=== PATIENT | female | born 1965 | race Caucasian/White ===

== ENCOUNTER → 2024-08-29 10:55 | Outpatient (CLI) | payer BC, SELFPAY ==
[2024-08-29 12:15] LABS: COVID-19 CEPHEID 4-PLEX PCR Negative (Negative); Influenza A - CEPHEID Flu A POSITIVE (NEGATIVE); Influenza B - CEPHEID Flu B NEGATIVE (NEGATIVE); Respiratory Syncytial Virus Negative (Negative)
== END ==
PROVIDERS: Visit Provider Nurse Practitioner Family
DX: R05.9 Cough, unspecified (principal); J02.9 Acute pharyngitis, unspecified
CPT/HCPCS: 0241U; 87070